=== PATIENT | female | born 1985 | race Caucasian/White ===

== ENCOUNTER 2020-03-04 11:53 | Emergency (ER) | payer SELFPAY | END 2020-03-04 13:38 | disposition left against medical advice (07) | LOC: BURERS 11:53 | DX: I10 Essential (primary) hypertension (principal); R00.0 Tachycardia, unspecified; F90.9 Attention-deficit hyperactivity disorder, unspecified type; Z87.891 Personal history of nicotine dependence; Z79.899 Other long term (current) drug therapy | CPT/HCPCS: 93005 ==

== ENCOUNTER 2020-10-30 10:27 | Emergency (ER) | payer BC, SELFPAY ==
[2020-10-30 21:22] LABS: SARS-CoV-2 PCR by NAA DETECTED (NotDetected)
== END 2020-10-30 11:06 | disposition home or self-care (01) ==
LOC: BURERS 10:27
DX: U07.1 COVID-19 (principal); Z87.891 Personal history of nicotine dependence
CPT/HCPCS: 87635; 99284; U0003; U0005

== ENCOUNTER 2020-12-08 09:59 | Emergency (ER) | payer BC ==
[2020-12-08] MEDS ORDERED: Lidocaine 2% PF 5 ML VIAL ONE (10:13)
[2020-12-08] MEDS ORDERED: Boostrix 0.5 ML (Tdap) VIAL ONE (10:28)
[2020-12-08] MEDS ORDERED: Bacitracin 1 PK ONE (10:28)
[2020-12-08] MEDS ORDERED: Cephalexin 250 MG CAP ONE (10:29)
== END 2020-12-08 10:44 | disposition home or self-care (01) ==
LOC: BURERS 09:59
DX: S61.216A Laceration without foreign body of right little finger without damage to nail, initial encounter (principal); Z87.891 Personal history of nicotine dependence; W26.0XXA Contact with knife, initial encounter; Y99.0 Civilian activity done for income or pay
CPT/HCPCS: 12001; 90471; 90715; J2001